=== PATIENT | male | born 1995 | race Caucasian/White ===

== ENCOUNTER 2020-10-22 13:41 | Inpatient (IN) | payer BC, SELFPAY ==
[2020-10-22] MEDS ORDERED: ONDANSETRON 4 MG/2 ML VIAL ONE (16:10)
--- NOTE | 2020-10-22 16:18 | RAD REPORT ---
EXAM DESCRIPTION: RAD - Chest Pa And Lat (2 Views) - 10/22/2020 4:00 pm CLINICAL HISTORY: covid +, SOB;Cough Chest pain. FINDINGS: Moderate patchy infiltrate is present in both lower lobes, greater on the left. This is co mpatible with underlying COVID-19 infection. The heart is normal in size. No displaced fractures.
[2020-10-22 16:50] LABS: Arterial Blood Carboxyhemoglob 0.9 % (0-1.5); Blood O2 Saturation 92.7 % (92-98.5)
--- NOTE | 2020-10-22 16:51 | RAD REPORT ---
EXAM DESCRIPTION: CT - Chest For Pe Angio - 10/22/2020 4:38 pm CLINICAL HISTORY: Chest pain. Cough;SOB COMPARISON: No comparisons TECHNIQUE: CT angiogram of the pulmonary arteries was performed with MIP. All CT scans are performed using dose optimization technique as appropriate and may include automated exposure control or mA/KV adjustment according to patient size. FINDINGS: No evidence of pulmonary thromboembolism. No acute aortic finding demonstrated. Extensive bilateral alveolar lung opacities are present greatest in the lower lobes. No significant pericardial or pleural fluid. No concerning bony finding. IMPRESSION: No evidence of pulmonary thromboembolism. Extensive alveolar lung opacities are present greatest in the lower lobes posteriorly most compatible with COVID-19 infection.
[2020-10-22 17:14] LABS: Basophils % 1.1 % (0-1.3); Hematocrit 47.9 % (39.6-49.0); Lymphocytes % 14.4 % (15.3-44.8); MPV 8.4 fL (7.6-11.3); RBC Red Blood Cell Count 5.44 M/uL (4.33-5.43)
[2020-10-22 17:16] LABS: Protime INR 1.32
[2020-10-22 17:39] LABS: ALT/SGPT 228 U/L (12-78); Alkaline Phosphatase 82 U/L (45-117); BUN Blood Urea Nitrogen 16 mg/dL (7-18); Bicarbonate 27 mmol/L (21-32); Bilirubin Direct < 0.1 mg/dL (0-0.2); Bilirubin Total 0.7 mg/dL (0.2-1.0); Glucose Level 92 mg/dL (74-106); Protein, Total 8.4 g/dL (6.4-8.2); Sodium Level 134 mmol/L (136-145); Troponin (Emerg Dept Use Only) < 0.02 ng/mL (0.0-0.045)
[2020-10-22] MEDS ORDERED: BENZONATATE 100 MG CAP PO ONE ×2 (17:39→20:10)
[2020-10-22] MEDS ORDERED: METHYLPREDNISOLONE 125 MG INJ ONE ×2 (17:39→20:09)
[2020-10-22] MEDS ORDERED: ASPIRIN 81 MG CHEWABLE TABLET ONE (17:39)
[2020-10-22] MEDS ORDERED: ALBUTEROL INHALER 60 PUFF/8 GM IH ONE (17:40)
[2020-10-22 17:43] LABS: NT PRO-BNP 26 pg/mL (<125)
[2020-10-22 18:02] LABS: AST/SGOT 276 U/L (15-37); Magnesium 2.6 mg/dL (1.8-2.4); Potassium 4.2 mmol/L (3.5-5.1)
--- NOTE | 2020-10-22 18:26 | EDPHYS ---
Physician Documentation [facility] Name: Fabio Bhagat Age: 25 yrs Sex: Male : 1995 Arrival Date: 10/22/2020 Time: 13:51 Bed 13 Private MD: JACQUELYN Physician Aidan Philip HPI: 10/22 16:05 This 25 yrs old Male presents to ER via Ambulatory with complaints of cp Shortness Of Breath - covid positve. 16:05 The patient has shortness of breath at rest. cp 16:05 Onset: The symptoms/episode began/occurred gradually, and became worse today. Duration: cp The symptoms are continuous, and are steadily getting worse. The patient's shortness of breath is aggravated by light activity, talking. Associated signs and symptoms: Pertinent negatives: chest pain, productive cough, diaphoresis, fever. Patient reports testing positive for COVID-19 13 days ago. Historical: - Allergies: 14:04 LITHIUM DERIVITIVES; ll1 - PMHx: 14:04 None; ll1 - PSHx: 14:04 None; ll1 - Immunization history:: Client reports having NOT received the Covid vaccine. Flu vaccine status is unknown. - Social history:: Smoking status: Patient denies any tobacco usage or history of. ROS: 16:10 Constitutional: Negative for body aches, chills, fever, poor PO intake. cp 16:10 Eyes: Negative for injury, pain, redness, and discharge. cp 16:10 ENT: Negative for ear pain, sore throat, difficulty swallowing, difficulty handling secretions. 16:10 Cardiovascular: Negative for chest pain, edema, palpitations. 16:10 Respiratory: Positive for cough, with no reported sputum, shortness of breath, at rest. Negative for wheezing. 16:10 Abdomen/GI: Negative for abdominal pain, nausea, vomiting, and diarrhea. 16:10 Neuro: Negative for altered mental status, headache, syncope, weakness. 16:10 All other systems are negative. Exam: 16:15 Constitutional: The patient appears in no acute distress, alert, awake, cp non-diaphoretic, non-toxic, well developed, well nourished. 16:15 Head/Face: Normocephalic, atraumatic. cp 16:15 Eyes: Periorbital structures: appear normal, Conjunctiva: normal, no exudate, no injection, Sclera: no appreciated abnormality, Lids and lashes: appear normal, bilaterally. 16:15 ENT: External ear(s): are unremarkable, Nose: is normal, Mouth: Lips: moist, Oral mucosa: pink and intact, moist, Posterior pharynx: Airway: no evidence of obstruction, patent. 16:15 Neck: ROM/movement: is normal, is supple, without pain, no range of motions limitations, no meningismus. 16:15 Chest/axilla: Inspection: normal, Palpation: is normal, no crepitus, no tenderness. 16:15 Cardiovascular: Rate: tachycardic, Rhythm: regular, Edema: is not appreciated, JVD: is not appreciated. 16:15 Respiratory: the patient does not display signs of respiratory distress, Respirations: labored breathing, is not present, shallow respirations, that is mild, Breath sounds: bronchial sounds, that are mild, are heard diffusely, decreased breath sounds, are not appreciated, stridor, is not appreciated, wheezing: is not appreciated. 16:15 Abdomen/GI: Inspection: abdomen appears normal, Palpation: abdomen is soft and non-tender, in all quadrants, rebound tenderness, is not appreciated, involuntary guarding, is not appreciated. 16:15 Back: pain, is absent, ROM is normal. 16:15 Skin: no rash present. 16:15 Neuro: Orientation: to person, place \T\ time. Mentation: is normal. 17:07 ECG was reviewed by the Attending Physician. cp Vital Signs: 14:00 Weight 113.4 kg; Height 6 ft. 2 in. (187.96 cm); Pain 8/10; ll1 14:05 BP 130 / 79; Pulse 118; Resp 22; Temp 98.6; Pulse Ox 91% on R/A; ll1 14:14 Pulse Ox 95% on 2 lpm NC; ll1 16:35 BP 110 / 77; Pulse 112; Resp 22; Temp 99.0; Pulse Ox 90% 2 lpm ; kh1 18:31 BP 128 / 80; Pulse 101; Resp 26; Temp 99.0; Pulse Ox 98% on R/A; kh1 14:00 Body Mass Index 32.10 (113.40 kg, 187.96 cm) ll1 MDM: 15:58 Patient medically screened. beverley 16:30 Differential diagnosis: asthma, CHF exacerbation, Myocardial Infarction pneumonia, cp pulmonary edema, Pulmonary Embolism reactive airway disease, Sepsis respiratory failure. 18:30 Data reviewed: vital signs, nurses notes, lab test result(s), EKG, radiologic studies, cp CT scan, plain films, and as a result, I will admit patient. 18:30 Counseling: I had a detailed discussion with the patient and/or guardian regarding: the cp historical points, exam findings, and any diagnostic results supporting the discharge/admit diagnosis, lab results, radiology results, the need for further work-up and treatment in the hospital. Response to treatment: the patient's symptoms have mildly improved after treatment. Physician consultation: Mingo KEEN was called at 18:20, was contacted at 18:20, regarding admission, to the telemetry unit. patient's condition. 10/22 16:08 Order name: ABG; Complete Time: 17:58 cp 10/22 16:08 Order name: Basic Metabolic Panel; Complete Time: 18:22 cp 10/22 16:08 Order name: CBC with Diff; Complete Time: 17:58 cp 10/22 16:08 Order name: LFT's; Complete Time: 18:22 cp 06 18:22 Interpretation: Normal except: ALT 228; TP 8.4; ALB 3.0; GLOB 5.4; A/G 0.6; AST 276. cp 10/22 16:08 Order name: Magnesium; Complete Time: 18:22 cp 10/22 16:08 Order name: NT PRO-BNP; Complete Time: 18:22 cp 10/22 15:29 Order name: XRAY Chest Pa And Lat (2 Views); Complete Time: 16:55 ss 10/22 16:08 Order name: PT-INR; Complete Time: 17:58 cp 10/22 16:08 Order name: Troponin (emerg Dept Use Only); Complete Time: 18:22 cp 10/22 16:08 Order name: CRP; Complete Time: 18:22 cp 10/22 18:22 Interpretation: Abnormal: C-REACTIVE PROT 81.10. cp 10/22 16:08 Order name: Ferritin; Complete Time: 18:22 cp 10/22 16:08 Order name: CT Chest For PE Angio; Complete Time: 16:55 cp 10/22 19:35 Order name: SARS-COV-2 RT PCR EDMS 10/22 16:08 Order name: EKG; Complete Time: 16:09 cp 10/22 16:08 Order name: Cardiac monitoring; Complete Time: 18:35 cp 10/22 16:08 Order name: EKG - Nurse/Tech; Complete Time: 17:12 cp 10/22 16:08 Order name: IV Saline Lock; Complete Time: 16:32 cp 10/22 16:08 Order name: Labs collected and sent; Complete Time: 16:32 cp 10/22 16:08 Order name: O2 Per Protocol; Complete Time: 18:35 cp 10/22 16:08 Order name: O2 Sat Monitoring; Complete Time: 18:35 cp 10/22 16:08 Order name: INCENTIVE SPIROMETRY 10/22 18:25 Order name: CONS Physician Consult EDMS EC:07 Rate is 100 beats/min. Rhythm is regular. OK interval is normal. QRS interval is cp normal. QT interval is normal. T waves are Inverted in lead III. Interpreted by me. Reviewed by me. Administered Medications: 17:20 Drug: NS 0.9% 1000 ml Route: IV; Rate: 1 bolus; Site: right antecubital; kh1 17:20 Drug: Albuterol HFA Inhaler 2 puffs Route: Inhalation; kh1 17:20 Drug: SOLU-Medrol (methylPrednisoLONE) 125 mg Route: IVP; Site: right antecubital; kh1 17:20 Drug: Tessalon Perle (benzonatate) 200 mg Route: PO; kh1 18:34 Drug: Aspirin Chewable Tablet 81 mg Route: PO; kh1 Disposition: 10/23 08:46 Co-signature as Attending Physician, Aidan Philip MD I agree with the assessment and beverley plan of care. Disposition Summary: 10/22/20 18:25 Hospitalization Ordered Hospitalization Status: Inpatient Admission cp Provider: Mingo Barriga cp Condition: Stable cp Problem: new cp Symptoms: have improved cp Bed/Room Type: Standard cp Location: Telemetry/MedSurg (Inpatient)(10/22/20 21:59) cg Room Assignment: 409(10/22/20 21:59) cg Diagnosis - Other viral pneumonia cp - SARS-associated coronavirus as the cause of diseases classified elsewhere cp - Hypoxemia cp Forms: - Medication Reconciliation Form cp - SBAR form cp Signatures: Dispatcher [employer] EDMS Aidan Philip MD MD cha Smirch, Shelby, RN RN ss Aidan Alston PA PA cp Dulce Maria Lazar RN RN cg Zane Portillo RN RN ll1 Kymberly Hernandez [facility] Corrections: (The following items were deleted from the chart) 10/22 18:22 17:59 Normal except: ALT 228; TP 8.4; ALB 3.0; GLOB 5.4; A/G 0.6. cp cp 18:26 16:09 CORONAVIRUS+MR.LAB.BRZ ordered. EDND EDMS 18:48 18:25 Telemetry/MedSurg (Inpatient) cp 18:48 18:25 cp 21:59 18:48 BR ER HOLD cg 21:59 18:48 [place] [facility] [place]
--- NOTE | 2020-10-22 18:26 | ER ---
Nurse's Notes [facility] [place], [place] Name: Fabio Bhagat Age: 25 yrs Sex: Male : 1995 Arrival Date: 10/22/2020 Time: 13:51 Bed 13 Private MD: Diagnosis: Other viral pneumonia;SARS-associated coronavirus as the cause of diseases classified elsewhere;Hypoxemia Presentation: 10/22 14:00 Chief complaint: Patient states: Covid positive 13 days ago Still has bad cough, SOB, ll1 and not eating so he came to be checked. No PCP. Coronavirus screen: Vaccine status: Patient reports being unvaccinated. Client denies travel out of the [place] in the last 14 days. chills, congestion, cough unrelated to allergies, diarrhea, difficulty breathing, fatigue, fever, headache, nausea, runny nose, shaking with chills, shortness of breath, sore throat, loss of taste or smell, vomiting. Client presents with at least one sign or symptom that may indicate coronavirus-19. Standard/surgical mask placed on the client. Ebola Screen: Patient denies travel to an Ebola-affected area in the 21 days before illness onset. Initial Sepsis Screen: Does the patient meet any 2 criteria? No. Patient's initial sepsis screen is negative. Does the patient have a suspected source of infection? Yes: Productive cough/pneumonia. Risk Assessment: Do you want to hurt yourself or someone else? Patient reports no desire to harm self or others. Onset of symptoms was October 09, 2020. 14:00 Method Of Arrival: Ambulatory ll1 14:05 Acuity: OPAL 2 ll1 Triage Assessment: 16:33 General: Appears in no apparent distress. Behavior is calm, cooperative. Pain: kh1 Complains of pain in chest Pain does not radiate. Pain currently is 08 out of 10 on a pain scale. Pain began Is Alleviated by Aggravated by. EENT: No deficits noted. No signs and/or symptoms were reported regarding the EENT system. Neuro: No deficits noted. Level of Consciousness is awake, alert, obeys commands. Neuro: No deficits noted. Cardiovascular: No deficits noted. Respiratory: No deficits noted. Historical: - Allergies: 14:04 LITHIUM DERIVITIVES; ll1 - PMHx: 14:04 None; ll1 - PSHx: 14:04 None; ll1 - Immunization history:: Client reports having NOT received the Covid vaccine. Flu vaccine status is unknown. - Social history:: Smoking status: Patient denies any tobacco usage or history of. Screenin:38 Abuse screen: Denies threats or abuse. Nutritional screening: No deficits noted. [facility] Tuberculosis screening: No symptoms or risk factors identified. Fall Risk IV access (20 points). Assessment: 16:36 General: Appears in no apparent distress. Behavior is calm, cooperative, appropriate kh for age. Neuro: No deficits noted. Cardiovascular: No deficits noted. Reports shortness of breath. Respiratory: Reports shortness of breath at rest cough that is productive. GI: No deficits noted. : No deficits noted. 17:30 Reassessment: Patient appears in no apparent distress at this time. No changes from [facility] previously documented assessment. Patient and/or family updated on plan of care and expected duration. Pain level reassessed. Patient is alert, oriented x 3, equal unlabored respirations, skin warm/dry/pink. 18:30 Visitor restriction implemented due to in-person visitations may lead to the [facility] transmission of an infectious agent. Restricted visitation is valid for not more than 5 days unless renewed by the attending provider. Visitor restrictions were implemented on: October 22, 2020 The client's visitor/family were updated. Unable to reach designated contact to provide update. Vital Signs: 14:00 Weight 113.4 kg; Height 6 ft. 2 in. (187.96 cm); Pain 8/10; ll1 14:05 BP 130 / 79; Pulse 118; Resp 22; Temp 98.6; Pulse Ox 91% on R/A; ll1 14:14 Pulse Ox 95% on 2 lpm NC; ll1 16:35 BP 110 / 77; Pulse 112; Resp 22; Temp 99.0; Pulse Ox 90% 2 lpm ; kh1 18:31 BP 128 / 80; Pulse 101; Resp 26; Temp 99.0; Pulse Ox 98% on R/A; kh1 14:00 Body Mass Index 32.10 (113.40 kg, 187.96 cm) 1 ED Course: 13:51 Patient arrived in ED. 1 14:00 Arm band placed on. 1 14:04 Triage completed. 1 15:56 Aidan Alston PA is PHCP. cp 15:56 Aidan Philip MD is Attending Physician. cp 15:58 XRAY Chest Pa And Lat (2 Views) In Process Unspecified. EDMS 16:04 X-ray completed. Patient tolerated procedure well. Patient moved back from radiology. 1 16:32 Inserted saline lock: 20 gauge in right antecubital area, using aseptic technique. ga Blood collected. 16:33 Kymberly Hernandez is Primary Nurse. kh1 16:38 CT Chest For PE Angio In Process Unspecified. EDMS 18:24 Mingo Barriga PA is Hospitalizing Provider. cp 18:33 Patient has correct armband on for positive identification. Bed in low position. Call [facility] light in reach. Side rails up X 1. 18:33 No provider procedures requiring assistance completed. kh1 18:35 INCENTIVE SPIROMETRY Sent. kh1 18:48 Patient admitted, IV remains in place. ss Administered Medications: 17:20 Drug: NS 0.9% 1000 ml Route: IV; Rate: 1 bolus; Site: right antecubital; kh1 17:20 Drug: Albuterol HFA Inhaler 2 puffs Route: Inhalation; kh1 17:20 Drug: SOLU-Medrol (methylPrednisoLONE) 125 mg Route: IVP; Site: right antecubital; kh1 17:20 Drug: Tessalon Perle (benzonatate) 200 mg Route: PO; kh1 18:34 Drug: Aspirin Chewable Tablet 81 mg Route: PO; kh1 Outcome: 18:25 Decision to Hospitalize by Provider. cp 18:48 Admitted to ER Hold. Please see [facility] for further documentation. 18:48 Condition: good 18:48 Instructed on the need for admit. 23:40 Patient left the ED. wg Signatures: Dispatcher [employer] EDMS Veronica Cortez 1 Melinda Mark RN RN ss Aidan Alston PA PA cp Kera Rasmussen mt, Lynsay, RN RN [facility] Kymberly Hernandez [facility] Ga Banks RN Corrections: (The following items were deleted from the chart) 14:07 14:00 Acuity: OPAL 3 ll1 ll1 16:13 14:05 BP 130 / 79; Pulse 118bpm; Resp 22bpm; Pulse Ox 91%; Temp 98.6F; ll1 ll1
--- NOTE | 2020-10-22 19:02 | P.HP ---
Certification for Inpatient Patient admitted to: Inpatient With expected LOS: <2 Midnights Patient will require the following post-hospital care: None Practitioner: I am a practitioner with admitting privileges, knowledge of patient current condition, hospital course, and medical plan of care. Services: Services provided to patient in accordance with Admission requirements found in Title 42 Section 412.3 of the Code of Federal Regulations <Mingo Barriga - Last Filed: 10/22/20 18:58> Patient History Date of Service: 10/22/20 Reason for admission: covid pneumonia History of Present Illness: Mr. Bhagat is a 25 yo M who presents with COVID+ diagnosis 14 days ago and worsenign symptoms. He reports SOB, cough, wheezing, pleuritic pain, N/V/D. Has not eaten for the past 13 days but has had good fluid intake. Stable on 4L NC at bedside. Ferritin 4180, AST 276, ALT 228, CRP 81. CXR and CTPE consistent with covid pneumonia, no evidence of pulmonary embolism. - Past Medical/Surgical History Has patient received pneumonia vaccine in the past: No Diabetic: No Past Medical History: Patient denies medical history Past Surgical History: Patient denies surgical history - Family History Family History: Reviewed- Non-Contributory - Social History Smoking Status: Never smoker Alcohol use: Yes CD- Drugs: No Caffeine use: No Place of Residence: Home <Mingo Barriga - Last Filed: 10/22/20 18:58> Date of Service: 10/22/20 <Alyssa South - Last Filed: 10/29/20 02:47> Allergies lithium Adverse Reaction (Verified 10/22/20 19:12) Shortness of breath Home Medications: Albuterol Inhaler [Ventolin Inhaler*] 2 puff IH Q6H PRN #1 hfa.aer.ad 10/24/20 Benzonatate [Tessalon Perle*] 100 mg PO TID PRN #30 cap 10/24/20 Rivaroxaban [Xarelto*] 20 mg PO DAILY AT SUPPER #14 tablet 10/24/20 predniSONE [Deltasone] 20 mg PO DIRECTED #19 tab 10/24/20 Review of Systems 10-point ROS is otherwise unremarkable General: Malaise Respiratory: Cough, Shortness of Breath, SOB with Excertion, Pleuritic Pain, Wheezing Gastrointestinal: Nausea, Vomiting, Diarrhea <Mingo Barriga - Last Filed: 10/22/20 18:58> Physical Examination - Physical Exam General: Alert, In no apparent distress HEENT: Atraumatic, PERRLA, Mucous membr. moist/pink, EOMI, Sclerae nonicteric Neck: Supple, 2+ carotid pulse no bruit, No LAD, Without JVD or thyroid abnormality Respiratory: Normal air movement, Rhonchi/gurgles Cardiovascular: Regular rate/rhythm, Normal S1 S2 Gastrointestinal: Normal bowel sounds, No tenderness Musculoskeletal: No tenderness Integumentary: No rashes Neurological: Normal gait, Normal speech, Normal strength at 5/5 x4 extr, Normal tone, Normal affect Lymphatics: No axilla or inguinal lymphadenopathy - Studies Laboratory Data (last 24 hrs) 10/22/20 16:30: PT 15.2 H, INR 1.32 10/22/20 16:30: WBC 6.70, Hgb 16.4, Hct 47.9, Plt Count 321 10/22/20 16:30: Sodium 134 L, Potassium 4.2, BUN 16, Creatinine 0.84, Glucose 92, Magnesium 2.6 H, Total Bilirubin 0.7, AST 276 H, ALT 228 H, Alkaline Phosphatase 82 <Mingo Barriga - Last Filed: 10/22/20 18:58> Assessment and Plan - Problems (Diagnosis) (1) Pneumonia due to COVID-19 virus Status: Acute - Plan pulm consulted, respiratory consulted continue IV steroids, ivermectin and covid supplements daily crp, ferritin, procal saturations for home o2, room air sats daily xarelto daily Discharge Plan: Home Plan to discharge in: 24 Hours - Advance Directives Does patient have a Living Will: No Does patient have a Durable POA for Healthcare: No - Code Status/Comfort Care Code Status Assessed: Yes (full code ) Critical Care: No Time Spent Managing Pts Care (In Minutes): 70 <Mingo Barriga - Last Filed: 10/22/20 18:58> - Problems (Diagnosis) (1) Pneumonia due to COVID-19 virus Status: Acute <Alyssa South - Last Filed: 10/29/20 02:47> Date of Service: 10/22/20 Subjective Agree with plan of care as mentioned above Review of Systems 10-point ROS is otherwise unremarkable Physical Examination - Vital Signs Reviewed - Physical Exam General: Alert, In no apparent distress, Oriented x3 HEENT: Atraumatic, PERRLA, EOMI Cardiovascular: Regular rate/rhythm, Normal S1 S2 Gastrointestinal: Normal bowel sounds, No tenderness Neurological: Normal speech, Normal tone, Normal affect Assessment & Plan - Problems (Diagnosis) (1) Pneumonia due to COVID-19 virus Status: Acute - Plan Continue with plan of care as mentioned below: 1. Continue with IV steroids 2. Monitor inflammatory markers 3. Repeat chest x-ray is symptoms are progressively worsening 4. O2 per protocol 5. Pulmonary consultation 6. Continue with albuterol inhaler therapy; also supportive care 7. Monitor LFTs 8. GI and DVT prophylaxis - Advance Directives Does patient have a Living Will: No Does patient have a Durable POA for Healthcare: No - Code Status/Comfort Care Code Status Assessed: Yes Code Status: Full Code Critical Care: No Time Spent Managing PTS Care (In Minutes): 35 <Alyssa South - Last Filed: 10/29/20 02:47>
[2020-10-22] MEDS ORDERED: ONDANSETRON 4 MG/2 ML VIAL IV PRN (19:13)
[2020-10-22] MEDS ORDERED: MORPHINE 2 MG/ML SYR IV PRN (19:13)
[2020-10-22] MEDS ORDERED: ACETAMINOPHEN 500 MG TAB PO PRN (19:13)
[2020-10-22] MEDS ORDERED: IVERMECTIN 3 MG TABLET PO SCH (20:00)
[2020-10-22] MEDS ORDERED: ASCORBIC ACID 500 MG TABLET ONE (20:09)
[2020-10-22] MEDS ORDERED: MELATONIN 5 MG TABLET PO ONE (20:10)
[2020-10-22] MEDS ORDERED: FAMOTIDINE 20 MG TAB ONE (20:10)
[2020-10-22] MEDS: MELATONIN 5 MG TABLET PO PRN (21:19)
[2020-10-22] MEDS: ASCORBIC ACID 500 MG TABLET PO SCH (21:19)
[2020-10-22] MEDS: FAMOTIDINE 20 MG TAB PO SCH (21:19)
[2020-10-22] MEDS: BENZONATATE 100 MG CAP PO PRN (21:19)
[2020-10-22] MEDS: METHYLPREDNISOLONE 125 MG INJ IV SCH (21:19)
[2020-10-22 22:14] VITALS: BMI 31.5
[2020-10-23] MEDS ORDERED: NA CHLORIDE 0.9% 2,000 ML ONE (00:02)
[2020-10-23 04:31] LABS: Absolute Lymphocytes (CBC) 0.5 K/uL (0.7-4.9); Basophils % 0.2 % (0-1.3); Lymphocytes % 20.7 % (15.3-44.8); MPV 8.3 fL (7.6-11.3); RBC Red Blood Cell Count 4.85 M/uL (4.33-5.43)
[2020-10-23 05:20] LABS: ALT/SGPT 264 U/L (12-78); AST/SGOT 242 U/L (15-37); Albumin 2.7 g/dL (3.4-5.0); Alkaline Phosphatase 78 U/L (45-117); BUN Blood Urea Nitrogen 17 mg/dL (7-18); Bicarbonate 27 mmol/L (21-32); Bilirubin Total 0.4 mg/dL (0.2-1.0); Ferritin 3659.1 ng/mL (26-388); Glucose Level 189 mg/dL (74-106); Magnesium 2.6 mg/dL (1.8-2.4); Phosphorus 2.7 mg/dL (2.5-4.9); Potassium 3.9 mmol/L (3.5-5.1); Protein, Total 7.4 g/dL (6.4-8.2); Sodium Level 138 mmol/L (136-145)
[2020-10-23] MEDS: VITAMIN D 1000 UNIT TAB PO SCH (07:44)
[2020-10-23] MEDS: ASPIRIN EC 81 MG TAB PO SCH (07:44)
[2020-10-23] MEDS: ZINC SULFATE 220 MG CAP PO SCH (07:44)
[2020-10-23] MEDS: METHYLPREDNISOLONE 125 MG INJ IV SCH ×2 (07:45→19:20)
[2020-10-23] MEDS: ASCORBIC ACID 500 MG TABLET PO SCH ×4 (07:45→19:18)
[2020-10-23] MEDS: THIAMINE HCL 100 MG TABLET PO SCH (07:45)
[2020-10-23] MEDS: FAMOTIDINE 20 MG TAB PO SCH ×2 (07:45→19:17)
[2020-10-23] MEDS ORDERED: POTASSIUM CL SA 10 MEQ TAB PO ONE (09:00)
[2020-10-23] MEDS ORDERED: IVERMECTIN 3 MG TABLET PO SCH (09:00)
--- NOTE | 2020-10-23 10:56 | EKG ---
Test Date: 2020-10-22 Test Time: 17:03:13 [employer] Professor: NALDO MEASUREMENT RESULTS: Intervals: Rate: 100 LA: 146 QRSD: 98 QT: 350 QTc: 451 [place]: P: 28 LA: 146 QRS: 69 T: 10 INTERPRETIVE STATEMENTS: Normal sinus rhythm Normal ECG No previous ECG available for comparison Electronically Signed On 10-23-20 10:54:07 CDT by Lawrence Wright
[2020-10-23] MEDS: RIVAROXABAN 10 MG TABLET PO SCH (16:16)
[2020-10-23] MEDS: MELATONIN 5 MG TABLET PO PRN (19:17)
[2020-10-23] MEDS: BENZONATATE 100 MG CAP PO PRN (19:20)
[2020-10-24 03:43] LABS: Absolute Lymphocytes (CBC) 0.9 K/uL (0.7-4.9); Basophils % 0.1 % (0-1.3); Lymphocytes % 6.5 % (15.3-44.8); MPV 8.2 fL (7.6-11.3); RBC Red Blood Cell Count 4.97 M/uL (4.33-5.43)
[2020-10-24 03:54] LABS: ALT/SGPT 224 U/L (12-78); AST/SGOT 95 U/L (15-37); Albumin 2.6 g/dL (3.4-5.0); Alkaline Phosphatase 79 U/L (45-117); BUN Blood Urea Nitrogen 17 mg/dL (7-18); Bicarbonate 28 mmol/L (21-32); Bilirubin Total 0.5 mg/dL (0.2-1.0); Glucose Level 146 mg/dL (74-106); Potassium 3.8 mmol/L (3.5-5.1); Protein, Total 7.2 g/dL (6.4-8.2); Sodium Level 142 mmol/L (136-145)
[2020-10-24 04:49] LABS: Blood Morphology Comment NOT SEEN (NOT SEEN); Platelet Estimate ADEQ
[2020-10-24] MEDS: ASPIRIN EC 81 MG TAB PO SCH (08:51)
[2020-10-24] MEDS: FAMOTIDINE 20 MG TAB PO SCH (08:51)
[2020-10-24] MEDS: METHYLPREDNISOLONE 125 MG INJ IV SCH (08:51)
[2020-10-24] MEDS: VITAMIN D 1000 UNIT TAB PO SCH (08:52)
[2020-10-24] MEDS: THIAMINE HCL 100 MG TABLET PO SCH (08:52)
[2020-10-24] MEDS: ASCORBIC ACID 500 MG TABLET PO SCH ×3 (08:52→17:09)
[2020-10-24] MEDS: ZINC SULFATE 220 MG CAP PO SCH (08:52)
[2020-10-24] MEDS: BENZONATATE 100 MG CAP PO PRN (08:52)
[2020-10-24] MEDS ORDERED: POTASSIUM CL SA 10 MEQ TAB PO ONE (09:00)
--- NOTE | 2020-10-24 16:20 | P.CNS ---
Date of Consult: 10/24/20 Reason for Consult: COVID penumonia Chief Complaint: covid pneumonia History of Present Illness: Age 25 AWCOVID penumonia, poor appetite worse 2 wks Allergies lithium Adverse Reaction (Verified 10/22/20 19:12) Shortness of breath Home Medications: NK [No Home Meds] 10/22/20 - Past Medical/Surgical History Diabetic: No - Social History Alcohol use: No CD- Drugs: No Caffeine use: No Place of Residence: Home Review of Systems General: Weakness Respiratory: Cough, Shortness of Breath Gastrointestinal: Nausea, Vomiting, Diarrhea Physical Examination Temp Pulse Resp BP Pulse Ox 97.6 F 82 18 107/58 L 96 10/24/20 08:00 10/24/20 08:00 10/24/20 08:00 10/24/20 08:00 10/24/20 08:00 General: In no apparent distress, Cooperative - Problems (1) Pneumonia due to COVID-19 virus Current Visit: Yes Status: Acute Plan: doign well on NC O2 poss DC/ Labs reviwed COVID penumonia/ poss DcAM
[2020-10-24 16:48] VITALS: O2SAT 95
[2020-10-24] MEDS: RIVAROXABAN 10 MG TABLET PO SCH (17:09)
[2020-10-24 17:25] VITALS: BP 130/76; TEMP 97.3
--- NOTE | 2020-10-29 02:46 | P.PN ---
Subjective Date of Service: 10/23/20 Patient doing well with no new complaints. Titrate oxygen down to room air Review of Systems 10-point ROS is otherwise unremarkable Physical Examination - Vital Signs Temperature: 97.3 F Blood Pressure: 130/76 Pulse: 98 Respirations: 16 Pulse Ox (%): 95 - Physical Exam General: Alert, In no apparent distress, Oriented x3 HEENT: Atraumatic, PERRLA, EOMI Neck: Supple, JVD not distended Respiratory: Diminished Cardiovascular: Regular rate/rhythm, Normal S1 S2 Gastrointestinal: Normal bowel sounds, No tenderness Musculoskeletal: No tenderness Integumentary: No rashes Neurological: Normal speech, Normal tone, Normal affect Lymphatics: No axilla or inguinal lymphadenopathy - Studies Medications List Reviewed: Yes Assessment & Plan - Problems (Diagnosis) (1) Pneumonia due to COVID-19 virus Status: Acute - Plan 1. Continue with IV steroids 2. Monitor inflammatory markers 3. Repeat chest x-ray is symptoms are progressively worsening 4. O2 per protocol 5. Pulmonary consultation 6. Continue with albuterol inhaler therapy; also supportive care 7. Monitor LFTs 8. GI and DVT prophylaxis - Advance Directives Does patient have a Living Will: No Does patient have a Durable POA for Healthcare: No - Code Status/Comfort Care Code Status Assessed: Yes Code Status: Full Code Critical Care: No Time Spent Managing PTS Care (In Minutes): 35
--- NOTE | 2020-10-29 02:48 | P.DS ---
Discharge Date: 10/24/20 Disposition: ROUTINE DISCHARGE Discharge Condition: GOOD Reason for Admission: covid pneumonia - Problems (1) Pneumonia due to COVID-19 virus Status: Acute Brief History of Present Illness: Mr. Bhagat is a 25 yo M who presents with COVID+ diagnosis 14 days ago and worsenign symptoms. He reports SOB, cough, wheezing, pleuritic pain, N/V/D. Has not eaten for the past 13 days but has had good fluid intake. Stable on 4L NC at bedside. Ferritin 4180, AST 276, ALT 228, CRP 81. CXR and CTPE consistent with covid pneumonia, no evidence of pulmonary embolism. Hospital Course: Patient is clinically doing well. Patient respiratory status is stable. At this time, patient is stable for discharge home. Patient follow up outpatient with Pulmonary. Vital Signs/Physical Exam: Temp Pulse Resp BP Pulse Ox 97.3 F 98 H 16 130/76 95 10/29/20 02:46 10/29/20 02:46 10/29/20 02:46 10/29/20 02:46 10/29/20 02:46 General: Alert, In no apparent distress, Oriented x3 Laboratory Data at Discharge: WBC 13.60 K/uL (4.3-10.9) H D 10/24/20 03:05 Hgb 14.9 g/dL (13.6-17.9) 10/24/20 03:05 Hct 44.0 % (39.6-49.0) 10/24/20 03:05 Plt Count 384 K/uL (152-406) D 10/24/20 03:05 PT 15.2 SECONDS (9.5-12.5) H 10/22/20 16:30 INR 1.32 10/22/20 16:30 Sodium 142 mmol/L (136-145) 10/24/20 03:05 Potassium 3.8 mmol/L (3.5-5.1) 10/24/20 03:05 BUN 17 mg/dL (7-18) 10/24/20 03:05 Creatinine 0.82 mg/dL (0.55-1.3) 10/24/20 03:05 Glucose 146 mg/dL (74-106) H 10/24/20 03:05 Phosphorus 2.7 mg/dL (2.5-4.9) 10/23/20 03:08 Magnesium 2.6 mg/dL (1.8-2.4) H 10/23/20 03:08 Total Bilirubin 0.5 mg/dL (0.2-1.0) 10/24/20 03:05 AST 95 U/L (15-37) H D 10/24/20 03:05 ALT 224 U/L (12-78) H 10/24/20 03:05 Alkaline Phosphatase 79 U/L (45-117) 10/24/20 03:05 Home Medications: Albuterol Inhaler [Ventolin Inhaler*] 2 puff IH Q6H PRN #1 hfa.aer.ad 10/24/20 Benzonatate [Tessalon Perle*] 100 mg PO TID PRN #30 cap 10/24/20 Rivaroxaban [Xarelto*] 20 mg PO DAILY AT SUPPER #14 tablet 10/24/20 predniSONE [Deltasone] 20 mg PO DIRECTED #19 tab 10/24/20 New Medications: predniSONE [Deltasone] 20 mg PO DIRECTED #19 tab Benzonatate [Tessalon Perle*] 100 mg PO TID PRN #30 cap PRN Reason: Cough Albuterol Inhaler [Ventolin Inhaler*] 2 puff IH Q6H PRN #1 hfa.aer.ad PRN Reason: Shortness Of Breath Rivaroxaban [Xarelto*] 20 mg PO DAILY AT SUPPER #14 tablet Physician Discharge Instructions: OK TO DC IV AND DC HOME FOLLOW-UP WITH PRIMARY CARE PROVIDER IN 1-2 WEEKS FOLLOW-UP WITH Pulmonary IN 1-2 WEEKS RETURN TO THE ER IF symptoms worsen CALL or TEXT DR. CARR AT [phone] IF ANY QUESTIONS REGARDING HOSPITAL STAY. PLEASE CALL THE FLOOR AT [phone] IF ANY MEDICATION OR NURSING QUESTIONS. 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
== END 2020-10-24 18:25 | disposition home or self-care (01) | DRG 177 ==
LOC: ER 13:41 → ERHOLD 18:43 → 4TH 22:03
PROVIDERS: ADMIT Hospitalist; ATTEND Hospitalist
DX: U07.1 COVID-19 (principal); J12.82 Pneumonia due to coronavirus disease 2019
CPT/HCPCS: 36415; 71046; 71275; 80048; 80053; 80076; 82728; 82805; 83735; 83880; 84100; 84145; 84484; 85025; 85610; 86140; 93005; 94760; 96374; 99285; J2405; J2930; J7030; Q9967; U0003